=== PATIENT | male | born 1960 | race Caucasian/White ===

== ENCOUNTER 2021-08-12 14:32 | Inpatient (IN) | payer OTHER ==
[~2021-08-12] VITALS: Ht 172.7 cm; Wt 87.7 kg
[2021-08-12 14:43] VITALS: BP 186/86
[2021-08-12 16:31] LABS: URINE BILIRUBIN NEGATIVE (Negative); URINE BLOOD NEGATIVE (Negative); URINE CLARITY CLEAR; URINE COLOR YELLOW; URINE GLUCOSE-RANDOM* 3+ (Negative); URINE KETONES TRACE (Negative); URINE LEUKOCYTES-REFLEX NEGATIVE (Negative); URINE NITRITE-REFLEX NEGATIVE (Negative); URINE PROTEIN (DIPSTICK) TRACE (Negative); URINE UROBILINOGEN 0.2 E.U./dl (0.2-1.0)
[2021-08-12 18:30] LABS: ABSOLUTE NEUTROPHILS 4.1 thou/uL (1.4-8.2); BASOPHILS 1.3 % (0.0-2.0); EOSINOPHILS 4.2 % (0.0-3.0); HEMATOCRIT 43.6 % (42.0-52.0); HEMOGLOBIN 14.4 gm/dL (14.0-18.0); MCH 26.5 pg (26.0-34.0); MCHC 32.9 g/dL (28.0-37.0); MCV 80.4 fL (80.0-100.0); MONOCYTES 10.3 % (1.0-8.0); PLATELET COUNT 273 thou/uL (150-400); POLYS 58.2 % (36.0-66.0); RBC 5.42 mil/uL (4.50-6.00); RDW 14.3 % (10.5-14.5)
[2021-08-12 18:46] LABS: CALCIUM 8.7 mg/dL (8.5-10.1); CREATININE 0.8 mg/dL (0.7-1.3); POTASSIUM 3.9 mmol/L (3.5-5.1)
[2021-08-12 18:54] LABS: ALBUMIN 3.3 g/dL (3.4-5.0); TOTAL BILIRUBIN 0.2 mg/dL (0.2-1.0); TOTAL PROTEIN 7.6 g/dL (6.4-8.2)
[2021-08-12 21:33] VITALS: BP 181/94
[2021-08-12 21:52] VITALS: BP 204/96
[2021-08-12 22:46] VITALS: BP 177/95
--- NOTE | 2021-08-12 23:59 | NUR ---
PT ADMITTED TO THE UNIT AT APPROXIMATELY 2150. PT IS A/O X4 AND IS UP WITH SBA DUE TO C/O LEFT LEG SPORADIC NUMBNESS AND PAIN TO LEFT HIP. ROOM AIR. BP ELEVATED. SB ON THE MONITOR IN THE HIGH 40'S. BS ELEVATED IN THE 300'S. ORDERS GIVEN BY ENVIRONMENTAL SCIENCE PROFESSOR TO TREAT BP. URINAL PROVIDED AT THE BEDSIDE. LBM WAS YESTERDAY. STATES HE HAS PAIN IN LEFT HIP BUT AT THIS TIME WISHES TO NOT TAKE ANY PAIN RELIEVER. PT HAS BEEN EDUCATED ON USE OF CALL LIGHT AND BED CONTROLS. ADMISSION IS COMPLETE. FALL PRECAUTIONS IN PLACE, CALL LIGHT IS WITHIN REACH. WILL CONTINUE TO MONITOR.
[2021-08-13 04:28] VITALS: BP 175/93
[2021-08-13 06:01] LABS: CHOLESTEROL 179 mg/dL (<200); HDL CHOLESTEROL 30 mg/dL (>40); LDL CHOLESTEROL 119 mg/dL (<100); TRIGLYCERIDE 151 mg/dL (<150); VLDL 30 mg/dL (<40)
[2021-08-13 06:02] LABS: CALCIUM 8.6 mg/dL (8.5-10.1); CREATININE 0.8 mg/dL (0.7-1.3); POTASSIUM 3.8 mmol/L (3.5-5.1)
[2021-08-13 06:06] LABS: SERUM ASSESSMENT Clear
[2021-08-13 07:21] VITALS: BP 183/89
--- NOTE | 2021-08-13 11:25 | NUR ---
ASSESSMENT: CM REVIEWED CHART AND SPOKE WITH PATIENT. PT IS ALERT AND ORIENTED X4. PT WAS ADMITTED WITH LUMBAR RADICULOPATHY, HERNIATED DISK. PT GETTING MRI AND NEUROSURGERY IS CONSULTED AND FOLLOWING WITH POSSIBLE PLANS FOR SURGERY TOMORROW PENDING MRI RESULTS. PT REPORTS THAT HE WAS FULLY INDEPENDENT WITH ADLS AND AMBULATION. PT REPORTS HE HAS NO DME AT HOME OR THE NEED FOR IT AND WAS WORKING. PT WANTING TO KNOW IF HE HAS SURGERY HOW LONG HE WILL BE OUT OF WORK HE NEEDS TO LET HIS JOB KNOW. CM NOTIFIED PT THAT PHYSICIAN WOULD HAVE MORE INFORMATION. PT REPORTS NO HX OF HH OR SNF. PT REPORTS HE DOES NOT CURRENTLY HAVE A PCP. CM NOTIFIED PT TO CONTACT THE NUMBER ON THE BACK OF HIS INSURANCE CARD TO GET PROVIDERS THAT ARE IN NETWORK. CM ALSO PROVIDED PT WITH [facility] DOCTORS LIST/CONTACTS. WILL AWAIT FURTHER RECOMMENDATIONS AND PLANS WELL PT/OT EVALS. CM WILL CONTINUE TO FOLLOW.
[2021-08-13 11:33] VITALS: BP 176/89
[2021-08-13 16:23] VITALS: BP 158/83
[2021-08-13 19:12] VITALS: BP 168/86
--- NOTE | 2021-08-13 19:28 | NUR ---
Assumed pt care this am vs stable, bp elevated managed with medications. Pt stated he does not see not has gone to a doctor. POC follwed, pain is managed with medications partial relief is noted. MRI is rescheduled to tomorrow .
[2021-08-13 22:16] VITALS: BP 190/11
[2021-08-14] VITALS (7 sets, daily range): BP systolic 150–181; BP diastolic 88–109
--- NOTE | 2021-08-14 00:54 | NUR ---
ASSESSED AT START OF SHIFT. PT AND DTR CONCERNED ABOUT MRI. INFORMED THAT MRI IS SCHEDULED TOMORROW PER REPORT. CALLED MRI TO CONFIRM NO RESPONSE. HIGH BP. HYDRALAZINE GIVEN. URINAL AT BEDSIDE. FALL PREC IN PLACE AND CALL LIGHT AT REACH WILL CONT TO MONITOR.
[2021-08-14 03:06] LABS: GLYCOHEMOGLOBIN (HGB A1C) 9.4 % (4.8-5.6)
[2021-08-14 04:33] LABS: HEMOGLOBIN 14.6 gm/dL (14.0-18.0); MCHC 33.2 g/dL (28.0-37.0); MCV 81.5 fL (80.0-100.0); RBC 5.4 mil/uL (4.50-6.00); RDW 14.5 % (10.5-14.5); WBC 10.3 thou/uL (4.0-11.0)
[2021-08-14 04:37] LABS: CALCIUM 8.7 mg/dL (8.5-10.1); CREATININE 0.8 mg/dL (0.7-1.3); POTASSIUM 3.7 mmol/L (3.5-5.1)
--- NOTE | 2021-08-14 11:51 | NUR ---
on-going assessment: CM REVIEWED CHART AND SPOKE WITH ATTENDING. PT CONTINUES WITH LLE WEAKNESS. NEUROSURGERY IS ON THE CASE AND FOLLOWING. NO NEED FOR INTERVENTION AT THIS TIME BUT THEY ARE RECOMMENDING THAT NEUROLOGY BE CONSULTED TO FOR PATIENT. NEURO CONSULT PLACED. PT/OT EVALS ALSO ORDERED. NO PLANS FOR WEEKEND DISCHARGE ANTICIPATED. CM WILL CONTINUE TO FOLLOW TO ASSIST NEEDED. [facility] AVAILABLE TO BE CONSULTED IF NEEDED.
--- NOTE | 2021-08-14 11:52 | NUR ---
Assumed care of pt at 0700. Pt a&ox4. Denies pain. LLE weakness. Up x1 assist with gait-belt and walker. MRI thoracis today. Neurology consulted. PT/OT. Talked to pt's daughter and updated on pt's status. Call light within reach. Fall precautions in place. Will continue to monitor.
[2021-08-14 23:06] LABS: GLYCOHEMOGLOBIN (HGB A1C) 9.2 % (4.8-5.6)
[2021-08-15 06:37] LABS: HEMATOCRIT 44.6 % (42.0-52.0); HEMOGLOBIN 14.5 gm/dL (14.0-18.0); MCH 26.3 pg (26.0-34.0); MCHC 32.6 g/dL (28.0-37.0); MCV 80.7 fL (80.0-100.0); RBC 5.53 mil/uL (4.50-6.00); RDW 14.2 % (10.5-14.5); WBC 10.2 thou/uL (4.0-11.0)
[2021-08-15 06:58] LABS: CALCIUM 8.7 mg/dL (8.5-10.1); CREATININE 0.8 mg/dL (0.7-1.3); POTASSIUM 3.7 mmol/L (3.5-5.1)
[2021-08-15 07:53] VITALS: BP 181/100
[2021-08-15 07:56] VITALS: BP 172/91
--- NOTE | 2021-08-15 08:06 | NUR ---
ASSUMED CARE AT 1900, PT LAYING IN BED COMFORTABLY, CALL LIGHT WITHIN REACH, COLD WATER ON THE BEDSIDE TABLE, DAUGHTER PRESENT, PT COMPLIANT OF TX, NO ADVERSE RECTION NOTED, REPORTS NO PAIN OR DISCOMFORT, AMBULATED TO THE TOILET MULTIPLE TIME X2 ASSIST WITH WALKER AND GAIT BELT, SYSTOLIC BLOOD PRESSURE REMAINS FLATUATING HIGH. [employer] SALES REPRESENTATIVE NOTIFIED, NEW ORDER RECEIVED MEDICATION ADMINISTERED, PT ON CONTINOUS MONITORING.
[2021-08-15 15:26] VITALS: BP 125/74
--- NOTE | 2021-08-15 15:26 | HC ---
[facility] [place] [address] CONSULTATION Name: RENATAKATLYN Room #: 438-P [facility] IN ..#: [id number] Admission: 08/12/21 Attend Phys: Jailyn Rich MD Discharge: Date of : 62 Report #: [id number] THIS REPORT FOR: cc: FAM - No family physician/PCP FAM - No family physician/PCP Ramona Polanco DO ~ DATE OF SERVICE: 08/14/2021 NEUROLOGY CONSULT HISTORY OF PRESENT ILLNESS: The patient is a 61-year-old male who presents with a 30-day history of left lower extremity weakness. The patient states that he first noticed weakness in his foot. He also has tingling in his toes. He feels that the weakness and tingling has spread up his leg. The patient has difficulty getting into a car. He has difficulty walking up and down stairs. The patient reported receiving his first dose of the COVID-19 vaccine one to two hours prior to symptom onset. He received his second COVID vaccine four days prior to admission. The patient denies pain in the leg with the exception of pain in the area of the left ankle. The patient denies weakness in his arms. He has no symptoms in the right lower extremity. The patient was admitted on 08/12. He was evaluated through the emergency room and admitted. The patient told me that he had not seen a primary care provider for this. When he was admitted to the hospital, he also states he was diagnosed with diabetes, had no idea that he had diabetes. Apparently, the patient fell six months ago injuring his right shoulder and underwent surgical repair of the shoulder a month or two after the injury. The patient has been seen by the surgeon and MRI of the lumbar spine was ordered. This showed multilevel lumbar spondylosis with severe disk desiccation at L3-L4 and L4-L5. At L3-L4, there is severe disk desiccation with broad-based posterior disk bulge which typically descending L4 nerve root more so on the left than the right with some posterior displacement of the descending left L4 nerve root. Mild bilateral facet arthrosis is seen. There is foraminal disk bulging resulting in moderate medial foraminal stenosis. No significant/severe central canal stenosis or neural foraminal stenosis is identified at any level. MRI of the thoracic spine showed degenerative changes, most significant at T10-T11 where posterior disk bulge and bilateral facet hypertrophy resulting in severe central canal stenosis and no significant neural foraminal narrowing. PAST MEDICAL HISTORY: Negative. PAST SURGICAL HISTORY: Right shoulder surgery. MEDICATIONS: None. [address] [address] CONSULTATION Name: KATLYN YANEZ Room #: 438-P [facility] IN ..#: [id number] Admission: 08/12/21 Attend Phys: Jailyn Rich MD Discharge: Date of : 62 Report #: [id number] ALLERGIES: None. VITAL SIGNS: Temperature 36.4, pulse rate 64, respiratory rate 20, blood pressure 170/99, bedside pulse oximetry 98% on room air. LABORATORY DATA: Hematology: White blood cell count 10.3, hemoglobin 14.6, hematocrit 44, MCV 81.5, platelet count 290,000. Urinalysis: Trace protein, trace ketones, 3+ glucose. Chemistry: Sodium 139, potassium 3.7, chloride 103, carbon dioxide 26, BUN 13, creatinine 0.8, glucose 99. Hemoglobin A1c 9.4, calcium 8.7, total bilirubin 0.2, AST 20, ALT 31, alkaline phosphatase 62, total protein 7.6, albumin 3.3, triglycerides 151. Cholesterol 179, LDL cholesterol 119, HDL cholesterol 30. Serology: COVID negative. IMAGING STUDIES: As noted in the history. NEUROLOGIC: Cranial nerves II-XII are grossly intact. Motor exam demonstrates normal strength in the upper extremities and right lower extremity and the left lower extremity. The patient has no ankle dorsi or plantar flexion. In a sitting position, he can almost extend the leg parallel to the floor, but appears to have weakness with knee flexion and extension. For hip flexion and extension, the patient is able to flex the left hip equally to move the right hip. The patient's reflexes are absent throughout. Plantar responses are flexor. Coordination shows no evidence of dysmetria. Sensory exam demonstrates decreased light touch in the foot, but involving the medial foot, but not the lateral foot, this did not go above the ankle. There was no dysesthesias in the lower leg or in the thigh. IMPRESSION AND PLAN: This patient has on MRI severe thoracic spinal stenosis and at L3-L4, a broad-based disk bulge, which is the descending L4 nerve root. Mild bilateral facet arthrosis is noted at this level. There is nothing on the MRI of the lumbar spine that would account for any neurologic symptoms. I explained to the patient that although the imaging of the thoracic and lumbar spine is abnormal, would not account for the symptoms that he has in the left lower extremity. I am concerned with the new diagnosis of diabetes that this patient could have a diabetic plexopathy. I have asked for an urgent CT scan of the pelvis to evaluate the lumbosacral plexus. Given the unilateral nature of his symptoms I have also asked for an MRI of the brain without contrast. <ELECTRONICALLY SIGNED> By: Ramona Polanco DO 08/15/21 1526 [id number] [id number] Ramona Polanco DO /jass
--- NOTE | 2021-08-15 18:37 | NUR ---
Pt is A & O x4. Pt Vs stable. Pt received medictions as ordered. Pt is NSR on the tele. Pt is room air. Pt is SBA with ADLs and cares. Pt is able to make needs known
[2021-08-15 19:36] VITALS: BP 138/80
--- NOTE | 2021-08-16 04:00 | NUR ---
PT STILL WITH NUMBNESS TO LLE, REQUIRES CLOSE SBA WHILE AMBULATING AND NEEDS WALKER AND GAITBELT.DENIES PAIN. NOT SURE WHETHER HE IS READY FOR D/C TODAY-CONCERNED ABOUT INABILITY TO AMBULATE SAFELY-ADVISED TO DISCUSS CONCERNS WITH DOCTOR.VOIDING OK.
[2021-08-16 06:04] LABS: HEMATOCRIT 43.7 % (42.0-52.0); HEMOGLOBIN 14.1 gm/dL (14.0-18.0); MCH 26.2 pg (26.0-34.0); MCHC 32.2 g/dL (28.0-37.0); MCV 81.2 fL (80.0-100.0); RBC 5.38 mil/uL (4.50-6.00); RDW 14.2 % (10.5-14.5); WBC 10.2 thou/uL (4.0-11.0)
[2021-08-16 07:12] LABS: CALCIUM 8.7 mg/dL (8.5-10.1); CREATININE 0.9 mg/dL (0.7-1.3); POTASSIUM 3.7 mmol/L (3.5-5.1)
[2021-08-16 08:44] VITALS: BP 153/85
[2021-08-16 11:44] VITALS: BP 143/85
--- NOTE | 2021-08-16 16:10 | NUR ---
ASSUMED CARE OF PT AT 0700 THIS MORNING. PT IS A/OX4 WITH WEAKNESS ON LEFT SIDE. PT CAN AMBULATE WITH WALKER WITH SB ASST. PT ASSESSMENTS NOTED IN CHART AND OTHERWISE UNREMARKABLE. FALL PRECAUTIONS ARE IN PLACE. ORIANA LIGHT AND OTHER NEEDS ARE IN REACH. MEDS AND TX GIVEN NEEDED AND SCHEDULED. WILL MONITOR AND NOTE ANY CHANGES.
[2021-08-16 16:33] VITALS: BP 128/75
[2021-08-16 19:40] VITALS: BP 129/79
--- NOTE | 2021-08-17 02:52 | NUR ---
ASSUMED CARE OF PT AT 1900. BEDSIDE REPORT RECIEED. FAMILY MEMBER C PT. JOANIE ASSESSMENT COMPLETE. L SIDED WEAKNESS NOTED D/T PRIOR CVA. ACCU CHECK COMPLETE. MEDS GIVEN PER JAN. PT DENIES ANY PAIN AT THIS TIME. R AC PIV PATENT, SECURE, SALINE LOCKED. UP C JACOB MONTANO. TELE LEADS IN PLACE. HOURLY ROUNDING CONTINUING. ALL NEEDS MET, CALL LIGHT IN REACH.
[2021-08-17 04:43] VITALS: BP 153/84
[2021-08-17 07:30] VITALS: BP 151/88
[2021-08-17 11:48] VITALS: BP 131/74
--- NOTE | 2021-08-17 12:07 | NUR ---
RE-ASSUMED CARE OF PT AT 0700 THIS MORNING. PT IS A/OX4 AND NO CHANGES FROM YESTERDAY. CONTINIUED CARE AND ASSESSMENTS NOTED IN CHART AND OTHERWISE UNREMARKABLE. PT HAS BEEN EVALUATED BY OT AND PHYS THPY. POSSIBLE XFER TO [facility]. FALL PRECAUTIONS ARE IN PLACE. CALL LIGHT AND OTHER NEEDS ARE IN REACH. MEDS AND TX GIVEN NEEDED AND SCHEDULED. WILL MONITOR AND NOTE ANY CHANGES.
--- NOTE | 2021-08-17 14:31 | NUR ---
Discussed during los with the hospitalist , dieter stroke. [facility] started auth for acute rehab. consult for short team disability question, tried visiting with channing. Resting, and no answer. Referral sent to [facility].
[2021-08-17 15:30] VITALS: BP 125/75
--- NOTE | 2021-08-17 15:43 | 2DMMODE ---
[facility] [place] [address] 2 D/M-MODE ECHOCARDIOGRAM Name: KATLYN YANEZ Room #: 438-P ADM IN M.R.#: [id number] Admission: 08/12/21 Attend Phys: Jailyn Rich MD Discharge: Date of : 62 Report #: [id number] THIS REPORT FOR: cc: GIBSON - Noemi family physician/PCP GIBSON - No family physician/PCP Herbert Young MD [facility] ~ APPROVED REPORT Study performed: 08/17/2021 14:26:26 EXAM: Comprehensive 2D, Doppler, and color-flow Echocardiogram Patient Location: Bedside Room #: 438 Status: routine BSA: 2.02 HR: 51 bpm BP: 151/88 mmHg Rhythm: Bradycardia Other Information Study Quality: Good Indications CVA/TIA Hypertension/HDD Echo Enhancing Agent Indication: Rule out Shunt Agent(s) / Amount(s) Used: Agitated Saline 7 cc 2D Dimensions RVDd: 28.64 mm IVSd: 17.14 (7-11mm) LVOT Diam: 21.98 (18-24mm) LVDd: 42.93 mm PWd: 16.68 (7-11mm) Ascending Ao: 35.50 (22-36mm) LVDs: 29.67 (25-40mm) Left Atrium: 42.49 (27-40mm) Aortic Root: 34.44 mm IVC: 22.00 mm Volumes Left Atrial Volume (Systole) Single Plane 4CH: 51.02 mL Single Plane 2CH: 55.06 mL LA ESV Index: 31.00 mL/m2 [facility] [address] [place] [address] 2 D/M-MODE ECHOCARDIOGRAM Name: KATLYN YANEZ Room #: 438-P ADM IN M.R.#: [id number] Admission: 08/12/21 Attend Phys: Saleem Pedro Discharge: Date of : 62 Report #: [id number] Aortic Valve AoV Peak Nayan.: 1.32 m/s AO Peak Gr.: 6.93 mmHg LVOT Max P.68 mmHg LVOT Max V: 1.08 m/s SAMARIA Vmax: 3.12 cm2 Mitral Valve E/A Ratio: 1.2 MV Decel. Time: 232.59 ms MV E Max Nayan.: 0.76 m/s MV A Nayan.: 0.66 m/s MV PHT: 67.45 ms IVRT: 143.02 ms Pulmonary Valve PV Peak Nayan.: 0.97 m/s PV Peak Gr.: 3.80 mmHg Pulmonary Vein P Vein S: 0.48 m/s P Vein A: 0.19 m/s P Vein D: 0.35 m/s P Vein A Dur.: 110.7 msec P Vein S/D Ratio: 1.37 Tricuspid Valve TR Peak Nayan.: 2.63 m/s TR Peak Gr.: 27.70 mmHg Left Ventricle The left ventricle is normal size. There is normal LV segmental wall motion. Moderate concentric left ventricular hypertrophy. The left ventricular systolic function is normal. The left ventricular ejection fraction is within the normal range. LVEF is 55-60%. Grade II - pseudonormal filling dynamics. Right Ventricle The right ventricle is normal size. The right ventricular systolic function is normal. Atria The left atrium size is normal. Interatrial septum is intact without evidence of ASD or PFO. The right atrium size is normal. Aortic Valve The aortic valve is normal in structure. No aortic regurgitation is present. There is no aortic valvular stenosis. Mitral Valve [facility] [address] [place] [address] 2 D/M-MODE ECHOCARDIOGRAM Name: KATLYN YANEZ Room #: 438-P ADM IN .R.#: [id number] Admission: 08/12/21 Attend Phys: Saleem Pedro Discharge: Date of : 62 Report #: [id number] The mitral valve is normal in structure. Trace mitral regurgitation. No evidence of mitral valve stenosis. Tricuspid Valve The tricuspid valve is normal in structure. There is no tricuspid valve regurgitation noted. Pulmonic Valve The pulmonary valve is normal in structure. There is no pulmonic valvular regurgitation. Great Vessels The aortic root is normal in size. IVC is dilated and collapses >50% with inspiration. Pericardium There is no pericardial effusion. <Conclusion> Normal left ventricle size with moderate concentric hypertrophy Ejection fraction 55% Grade 2 diastolic dysfunction Normal right ventricle size/function Normal atrial size Normal aortic/mitral valve structure and function No tricuspid valve insufficiency No pericardial effusion Normal aortic root size <ELECTRONICALLY SIGNED> By: Herbert Young MD, FACC 08/17/21 1543 1543 1543 Herbert Young MD, FACC /INF
--- NOTE | 2021-08-17 17:03 | NUR ---
[facility] CONSULT RECEIVED AND Pt WAS SEEN BY DR. MARY ANNE SHEA. Pt IS A CANDIDATE FOR ACUTE REHAB. THIS HAIR ASSISTANT CALLED [facility] TO START AUTHORIZATION PROCESS. PENDING AUTH# [id number]. SPOKE W/ VICKI Cerrato CLINICAL INFORMATION WAS FAXED TO [phone], ATTN PRE-CERTIFICATION. CALLED BENEFITS DEPARTMENT AND SPOKE W/ ANGELITA Platt WHO CONFIRMED THAT DR. MARY ANNE SHEA WAS IN-NETWORK W/ Pt'S INSURANCE PLAN. WILL AWAIT RESPONSE FROM [facility] REGARDING AUTHORIZATION.
[2021-08-17 20:31] VITALS: BP 141/75
[2021-08-18 07:55] VITALS: BP 153/85
--- NOTE | 2021-08-18 07:56 | NUR ---
RECEIVED CARE OF THIS PATIENT AT 1900. PATIENT ALERT AND ORIENTED X4. UP WITH SBA. C/O NUMBNESS IN L LEG. TOLD PATIENT BECAUSE OF THE NUMBNESS OF HIS LEG HE IS A HIGH FALL RISK AND TOLD HIM TO ASK FOR HELP WHEN GETTING UP. PATIENT AGREED. DENIED PAIN. SLEPT OFF AND ON DURING NIGHT.
--- NOTE | 2021-08-18 15:12 | NUR ---
CONTINUED CARE OF PT AT 0700 THIS MORNING. NO CHANGES SINCE REPORT WAS GIVEN LAST NIGHT. PT ASSESSMENTS NOTED IN CHART AND OTHERWISE UNREMARKABLE. FALL PRECAUTIONS ARE IN PLACE. PT IS WAITING FOR REHAB PLACEMENT AND WORKING WITH PHYS THPY AND OT. CALL LIGHT AND OTHER NEEDS ARE IN REACH. MEDS AND TX GIVEN NEEDED AND SCHEDULED. WILL MONITOR AND NOTE ANY CHANGES.
[2021-08-18 16:30] VITALS: BP 125/88
[2021-08-18 17:02] VITALS: BP 102/65
[2021-08-18 19:17] VITALS: BP 129/76
--- NOTE | 2021-08-19 04:06 | NUR ---
RECEIVED CARE OF THIS PATIENT AT 1900. PATIENT ALERT AND ORIENTED X4. DENIES PAIN. READY TO GO HOME TODAY. ACCUCHECK WAS 182, GETS METMOFMIN. HAS NO IV, DOCTORS AWARE. UP AD MARIA ISABEL. SLEPT MOST OF NIGHT.
[2021-08-19 04:11] VITALS: BP 148/83
[2021-08-19 07:52] VITALS: BP 157/90
--- NOTE | 2021-08-19 10:39 | NUR ---
Assumed care of pt at 0700. Pt a&ox4. Denies pain. SBA with walker and gait-belt. Waiting on ins auth to go to rehab. Call light within reach. Will continue to monitor.
[2021-08-19 12:16] VITALS: BP 106/73
--- NOTE | 2021-08-19 13:02 | NUR ---
[facility] can accept the pt for acute rehab stay once ins auth rec'd. They have a bed available today. Pt medically ready for dc to acute. Care team updated. Awaiting ins auth. Pt will also need a covid now when dc'd to acute rehab.
[2021-08-19 16:42] VITALS: BP 119/77
--- NOTE | 2021-08-19 16:57 | NUR ---
I have reviewed the documentation by EMILY BAR from 08/19/21 to 08/19/21 and I concur with it. MICHAEL TREJO
[2021-08-19 19:33] VITALS: BP 130/84
--- NOTE | 2021-08-20 01:57 | NUR ---
ASSESSED AT START OF SHIFT, PT RESTING IN BED. DENIES PAIN. EVENING MEDS GIVEN AND PT DOLORES IT WELL. UP WITH SBA TO THE BATHROOM. BSG CHECKED AND METFORMIN GIVEN. POSSIBLE DC TO [facility] TOMORROW. FALL PREC IN PLACE AND CALL LIGHT AT REACH WILL CONT TO MONITOR.
[2021-08-20 05:05] VITALS: BP 160/104
[2021-08-20 08:17] VITALS: BP 154/98
--- NOTE | 2021-08-20 10:17 | NUR ---
Assumed care of pt at 0700. Pt a&ox4. Denies pain. SBA to the toilet with walker and gait-belt. Awaiting transfer to rehab unit. Call light within reach. Fall precautions in place. Will continue to monitor.
[2021-08-20 12:30] VITALS: BP 120/78
--- NOTE | 2021-08-20 14:27 | NUR ---
Followup dc planning visit with pt at bedside and dtr Celia via phone. Pt and dtr advised that [facility] submited for ins auth on Friday 08/17 and we are still awaiting an approval. [facility] has a bed for him today if auth rec'd. The [facility] liason has been checking with ins. Dtr/pt will also try to call ins as they are frustrated that the pt has not been able to be admitted to the rehab program. Progress with therapy and updates from the care team provided. Potential dc planning needs discussed including obtaining a pcp ([facility] or Dr Landrum)for f/u care with new dx of dm and htn, short term disability paperwork from his employer, group home disablity and health ins per his employer, SS disability pending his progress and stroke recovery, [place] and [place] pending his finances and extent of his disability, help at home and dpoa documents. Pt's dtr to bring in his paperwork for std per his HR dept for completion, she will make a new pt appt for pcp, she will talk with her siblings about potential transportation and care needs at home, DPOA document for hc to be given to the pt/dtr, dtr to look into a financial dpoa as well if needed. Family is noting that the pt's responses are at times delayed and his memory seems to be a little impaired compared to his normal functioning. ST arriaza requested. Pt is and has four living children. His 18 yr old dtr and 15 year old son live with him. Celia and an another son live close by. 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 It is unclear at this time if he will be able to return to work/driving. Acute rehab, outpt therapy programs,HH and dme discussed. Support provided. Pt is motivated and his children are very supportive. Will follow.
[2021-08-20 15:55] VITALS: BP 135/81
[2021-08-20 19:58] VITALS: BP 136/78
--- NOTE | 2021-08-21 01:08 | NUR ---
ASSUMED PT CARE AT 1900.PT DENIED PAIN SO FAR.UP WITH GB/CANE AND SBA.L SIDED WEAKNESS NOTED.PT ON TELE SR-SB. PT'S FAMILY AT BEDSIDE AT SHIFT CHANGE.PT ABLE TO MAKE HIS NEEDS KNOWN.CALL LIGHT WITHIN REACH.
[2021-08-21 07:11] VITALS: BP 142/92
--- NOTE | 2021-08-21 12:22 | NUR ---
S/W LARISA LIMA NURSE REVIEWER TO ATTEMPT TO EXPEDIATE THE AUTH PROCESS FOR ACUTE REHAB. SHE WILL CONTACT HER DRAGSAW OPERATOR. FAXED LATEST PT/OT NOTES TO JANIE FAX# [phone] USING AUTH # [id number].
--- NOTE | 2021-08-21 13:08 | NUR ---
SW reviewed chart and spoke with nursing and attending physician. Pt is medically stable for discharge to post-acute care. [facility] has submitted for insurance auth. Awaiting input from insurance at this time. Pt to discharge to today if insurance auth has been provided. CHARLENE is following to assist as needed with discharge planning.
--- NOTE | 2021-08-21 14:24 | NUR ---
PT PROGRESSING TOWARD GOALS. WORKING W/THERAPY. AMBULATING W/ QUAD CANE. NO C/O PAIN. EATING AND DRINKING WELL. AWAITING INS APPROVAL FOR REHAB UNIT.
[2021-08-21] MEDS ORDERED: METOPROLOL TART25 MG PO (15:56)
[2021-08-21] MEDS ORDERED: LIPITOR40 MG PO (15:56)
[2021-08-21] MEDS ORDERED: BAYER CHEWABLE81 MG PO (15:57)
[2021-08-21] MEDS ORDERED: NORVASC10 MG PO (15:57)
[2021-08-21] MEDS ORDERED: METFORMIN HCL500 MG PO (15:57)
[2021-08-21] MEDS ORDERED: TRADJENTA5 MG PO (15:57)
[2021-08-21] MEDS ORDERED: LISINOPRIL20 MG PO (15:57)
--- NOTE | 2021-08-21 15:58 | NUR ---
PATIENT WAS APPROVED FOR ACUTE INPATIENT REHABILITATION BY [facility] INSURANCE ON 08/21/21. REFERENCE #[id number]. REVIEW IS DUE TO CANDICE ON 08/28/21. CANDICE CAN BE REACHED FOR REVIEW BY PHONE AT [phone] OR FAX BY [phone].
--- NOTE | 2021-08-21 18:20 | NUR ---
I have reviewed the documentation by EMILY BAR from 08/21/21 to 08/21/21 and I concur with it. MICHAEL TREJO
[2021-08-21 19:47] VITALS: BP 154/86
[2021-08-21 22:30] VITALS: BP 146/84
--- NOTE | 2021-08-25 15:24 | HC ---
[facility] [place] [address] CONSULTATION Name: KATLYN YANEZ Room #: 503-P [facility] IN ..#: [id number] Admission: 08/12/21 Attend Phys: Jailyn Rich MD Discharge: 08/21/21 Date of : 62 Report #: [id number] THIS REPORT FOR: cc: GIBSON - No family physician/PCP FAM - No family physician/PCP Timo Samuel MD ~ DATE OF SERVICE: 08/17/2021 HISTORY OF PRESENT ILLNESS: The patient is a 61-year-old male admitted with left leg numbness x1 month. He has had more and more problems with inability to ambulate. There also was note of urinary control problems with loss of control in the Emergency Room. He was noted to have severe disk desiccation at L3-L4 with progressive weakness of that left leg. Neurosurgery saw him and did not feel that any surgical intervention was warranted. Neurology was involved and they initially were concerned about possible lumbar plexopathy with his newly diagnosed diabetes mellitus. Further workup included an MRI of the brain, which revealed a subacute right caudate stroke. The patient has had a significant functional decline from his premorbid level. He has been diagnosed with new onset diabetes mellitus and new onset hypertension. PAST MEDICAL HISTORY: He was on no known home medications. PAST SURGICAL HISTORY: Includes right shoulder surgery secondary to fall at work 6 months ago. HABITS: Tobacco use, 5-6 cigarettes per day. Alcohol on special occasions. FAMILY HISTORY: Includes diabetes, heart disease, hypertension. SOCIAL HISTORY: He lives with his son and daughter in a multilevel home, 20 steps in. Son and daughter go to school and work. He could stay on one level if need be. He works as a home health caregiver. REVIEW OF SYSTEMS: Did not offer any current complaints of chest pain, shortness of breath or abdominal discomfort. PHYSICAL EXAMINATION: GENERAL: A 61-year-old male, pleasant, in no obvious distress. VITAL SIGNS: Last recorded temperature 98.1, pulse 65, respirations 20, blood pressure 151/88. NEUROLOGIC: The patient is alert. He follows basic 1-step commands. Facies appeared to be symmetric. Appears to have functional range of motion of both upper extremities. I would grade his strength at a 4-/5. Coordination appeared to be reasonably intact [id number]. In his right lower extremity, he appeared to have functional range of motion, strength was at least a grade 4-/5. Tone was intact. Left lower extremity, he is able to flex his left hip grade [facility] [address] [place] [address] CONSULTATION Name: KATLYN YANEZ Room #: 503-P [facility] IN ..#: [id number] Admission: 08/12/21 Attend Phys: Jailyn Rich MD Discharge: 08/21/21 Date of : 62 Report #: [id number] 3+ to 4-. Abduction is 3+ to 4-. Knee extension is 3+ to 4-. No active knee flexion and he has no active ankle dorsiflexion, plantarflexion, or eversion. He has decreased reflexes throughout his lower extremities. He appears to have some decreased light touch to the foot. Proprioception may be mildly decreased left large toe. Functionally, he has been min assist coming to stand. Gait is 25 feet min assist with a front-wheeled walker. Toilet transfers are mod assist. Lower extremity dressing is moderate assistance. ASSESSMENT: A 61-year-old male with the following problem list: 1. Subacute right caudate nucleus cerebrovascular accident. 2. Significant left-sided weakness, especially left lower extremity. 3. Severe disk desiccation at L3-4 with progressive weakness of the left leg. 4. Urinary loss of control during initial admission, which is being monitored. 5. New onset diabetes mellitus, hemoglobin A1c 9.2. 6. New onset hypertension. 7. Hyperlipidemia. 8. Lumbar radiculopathy. No surgery indicated per Neurosurgery. 9. Multiple stairs at home. Family present, but works. PLAN: The patient has had a significant functional decline from his prior status where he was out working as a home health caregiver. He is needing mod assist with lower body dressing and mod assist with toilet transfers and needs assistance with short distance ambulation, is not moving that left distal lower extremity at all. Would recommend a short acute in-hospital inpatient rehabilitation stay to try to maximize his functional independence, so he can return back to the home setting. Insurance precertification issues to be checked. ADDENDUM: Patient also had some questions regarding his short-term disability policy and we will ask case management to assist further in this regard. <ELECTRONICALLY SIGNED> By: Timo Samuel MD 08/25/21 1524 [id number] Timo Samuel MD /nt
== END 2021-08-21 22:47 | DRG 551 ==
LOC: ER 14:32 → 4S 19:26 → EROBS 19:26 → 4S 21:41
PROVIDERS: Hospitalist; Nurse Practitioner Family; ADMIT Hospitalist; ATTEND Hospitalist
DX: M51.16 Intervertebral disc disorders with radiculopathy, lumbar region (principal); I63.9 Cerebral infarction, unspecified; G81.94 Hemiplegia, unspecified affecting left nondominant side; M51.36 Other intervertebral disc degeneration, lumbar region; M48.05 Spinal stenosis, thoracolumbar region; I10 Essential (primary) hypertension; Z20.822 Contact with and (suspected) exposure to COVID-19; E11.65 Type 2 diabetes mellitus with hyperglycemia; E78.5 Hyperlipidemia, unspecified; F17.210 Nicotine dependence, cigarettes, uncomplicated; M47.26 Other spondylosis with radiculopathy, lumbar region; Z82.3 Family history of stroke; Z83.3 Family history of diabetes mellitus; Z82.49 Family history of ischemic heart disease and other diseases of the circulatory system; Z79.899 Other long term (current) drug therapy
CPT/HCPCS: 10100

== ENCOUNTER 2021-08-20 09:30 | Inpatient (IN) | payer OTHER ==
[~2021-08-20] VITALS: Ht 172.7 cm; Wt 87.5 kg
--- NOTE | ~2021-08-20 | PLAN ---
[facility] [place] [address] REHAB UNIT PLAN OF CARE Name: KATLYN YANEZ Room #: 503-P ADM IN M.R.#: [id number] Admission: 08/21/21 Attend Phys: Timo Samuel MD Discharge: Date of : 62 Report #: [id number] THIS REPORT FOR: cc: FAM - No family physician/PCP FAM - No family physician/PCP Timo Samuel MD ~ DATE OF SERVICE: 08/24/2021 HISTORY OF PRESENT ILLNESS: The patient was seen back today in followup. He was in no distress. Last recorded temperature 97.8, pulse 58, respirations 20, blood pressure 130/81. He is alert. Seems to be moving the left lower extremity better than when last seen. I would grade his dorsiflexion at least a grade 3+/5 as well as extensor hallucis longus. He is not able to plantar flex at all for me. He has got very weak knee flexion at grade 2-. No calf swelling. Functionally, he is transferring with standby assistance and gait is now 50 feet mod assist without a device. In occupational therapy, lower body dressing is supervision with upper body dressing independent. In speech, he was noted to have a regular diet with thin liquids. ASSESSMENT: 1. Subacute right caudate nucleus cerebrovascular accident. 2. Left hemiparesis with left foot neuropathy. 3. Severe thoracic spinal stenosis. 4. Lumbar radiculopathy with disk desiccation at L3-L4. 5. Newly diagnosed diabetes mellitus type 2. 6. Newly diagnosed hypertension. 7. Hyperlipidemia. PLAN: The overall plan of care is based on the pre-admission screen and information garnered from therapy assessments. 1. Estimated length of stay is probably around 10 days. 2. Medical prognosis reasonably good. 3. Anticipated interventions includes interdisciplinary acute inpatient rehabilitation program. 4. Anticipated functional outcomes would be for the patient to become modified independent with transfers, mobility and ADLs and improvement as far as cognition, so that he can return back to the home setting. 5. Discharge destination would be back home where he lives with his son and daughter. 6. Expected therapy by discipline includes PT, OT and speech 1 hour per day each 5 days a week throughout the duration of the acute inpatient rehabilitation stay. ADDENDUM: The patient's prognosis for significant practical improvement within a reasonable period of time appears good. Given the patient's complex medical condition and risk of further medical complication, rehabilitation services [address] [address] REHAB UNIT PLAN OF CARE Name: RENATAKATLYN Room #: 503-P [facility] IN .R.#: [id number] Admission: 08/21/21 Attend Phys: Timo Samuel MD Discharge: Date of : 62 Report #: [id number] could not be safely provided at a lower level of care such as a residential facility. By: [id number] Timo Samuel MD /nt
[2021-08-21] MEDS ORDERED: LIPITOR40 MG PO (15:56)
[2021-08-21] MEDS ORDERED: METOPROLOL TART25 MG PO (15:56)
[2021-08-21] MEDS ORDERED: METFORMIN HCL500 MG PO (15:57)
[2021-08-21] MEDS ORDERED: TRADJENTA5 MG PO (15:57)
[2021-08-21] MEDS ORDERED: BAYER CHEWABLE81 MG PO (15:57)
[2021-08-21] MEDS ORDERED: NORVASC10 MG PO (15:57)
[2021-08-21] MEDS ORDERED: LISINOPRIL20 MG PO (15:57)
[2021-08-21 22:30] VITALS: BP 146/84
--- NOTE | 2021-08-22 03:43 | NUR ---
ASSUMED CARE OF PT AT 2230HRS. PT IS AOX4 AND LETS NEEDS BE KNOWN. FALL PRECAUTION IN PLACE. PT WAS ORIENTED TO THE UNIT AND HIS ROOM. PT WAS ABLE TO ANSWER ALL ADMISSION RELATED QUESTIONS AND SIGN CONSENTS. PT DENIED PAIN, NAUSEA OR SOA. LLE WEAKNESS NOTED. PT AMBULATES WITH A QUAD CANE AND SBA. PT WAS ABLE OT GET COMFORTABLE AND SLEEP PART OF THE SHIFT. VSS AND NO S/S OF ACUTE DISTRESS. WILL CONTINUE TO MONITOR FOR CHANGES.
[2021-08-22 05:35] LABS: HEMATOCRIT 40.3 % (42.0-52.0); HEMOGLOBIN 13.1 gm/dL (14.0-18.0); MCH 26.4 pg (26.0-34.0); MCHC 32.5 g/dL (28.0-37.0); MCV 81.2 fL (80.0-100.0); RBC 4.96 mil/uL (4.50-6.00); RDW 13.7 % (10.5-14.5); WBC 8.2 thou/uL (4.0-11.0)
[2021-08-22 05:40] LABS: CALCIUM 8.4 mg/dL (8.5-10.1); CREATININE 0.8 mg/dL (0.7-1.3); POTASSIUM 3.7 mmol/L (3.5-5.1)
[2021-08-22 06:15] LABS: FOLIC ACID 15.4 ng/mL (8.6-58.9)
[2021-08-22 07:15] VITALS: BP 167/92
--- NOTE | 2021-08-22 09:56 | NUR ---
PT LYING IN BED THIS AM. PT DENIES ANY PAIN. PT ABLE TO TAKE MEDS WHOLE WITH WATER. PT HAS EQUAL SIGN HANGER UPPER EXTREMITIES. PT HAS WEAKNESS TO LEFT SIDE WHEN AMBULATING. PT LUNGS CLEAR.
[2021-08-22 19:37] VITALS: BP 165/95
--- NOTE | 2021-08-23 04:44 | NUR ---
ASSUMED CARE AT 1900 OF 08/22. PATIENT IS A&OX4. DENIES PAIN OR SHORTNESS OF BREATH. LLE WEAKNESS PRESENT, STANDBY ASSIST WITH TRANSFERS USING QUAD CANE AND GB. BUE MANAGER PRODUCT MARKETING REMAIN EQUAL. TOLERATED MEDS WHOLE WITH WATER. FALL PRECAUTIONS IN PLACE, CALL LIGHT WITHIN REACH. WILL CONTINUE TO MONITOR.
[2021-08-23 07:20] VITALS: BP 173/99
[2021-08-23 19:34] VITALS: BP 130/81
--- NOTE | 2021-08-24 04:23 | NUR ---
ASSUMED CARE AT 1900 OF 08/23. PATIENT IS A&OX4. DENIES PAIN OR SHORTNESS OF BREATH. STAND BY ASSIST WITH TRANSFERS AND MABULATION, USING GB AND QUAD CANE. TOLERATED MEDS WHOLE WITH THIN LIQUIDS. FALL PRECAUTIONS IN PLACE, CALL LIGHT WITHIN REACH. WILL CONTINUE TO MONITOR.
[2021-08-24 07:11] VITALS: BP 162/91
--- NOTE | 2021-08-24 08:29 | NUR ---
Chart review. DX CVA. Elia visited with channing at bedside. answer with yes or no with verbal conversation. Education on dcp and team weekly meetings. Prior to hospital lives in house, steps to enter and inside home. Independent. No dme. Manage own medication. No pcp, daughter going to set up visit to get a pcp. Drives and works outside the home. Daughter and son live in area and they work. Daughter going to get his short term disability paperwork from his employer to have fill out. Will cont following as needed for dc needs.
--- NOTE | 2021-08-24 13:23 | NUR ---
Nutrition: Pt transferred to acute rehab with dx subacute CVA, lumbar radiculopathy. New dx DM, HTN, HLD. Triglycerides 151, LDL 119. Pt able to speak/understand bruneian although primary language occitan. Education on heart healthy diabetic diet completed on 08/[address] Pt voices no additional questions for RD at this time. Eats well/good appetite. Recent 7# weight loss from usual possibly due to undiagnosed DM. Place as low nutrition risk.
[2021-08-24 19:28] VITALS: BP 158/97
[2021-08-24 22:00] VITALS: BP 153/82
--- NOTE | 2021-08-25 00:05 | NUR ---
PT ASSESSMENT COMPLETED AND VSS. MEDS GIVEN ORDERED AND WELL TOLERATED. FALL PRECAUTIONS IN PLACE. VOIDING PER URINAL. LEFT FOOT WEAKNESS CONTINUES. PT ASKING LOTS OF GOOD QUESTIONS ABOUT BG LEVELS AND BP. PROVIDED EDUCATION. PT ASKING IF HE CAN GET A BP CUFF FOR HOME COVERED. HE IS PLANNING TO ASK THE DR IN THE MORNING. PT DENIES NEEDS. SLEEPING. WILL CONTINUE TO MONITOR FREQUENTLY.
[2021-08-25 07:07] VITALS: BP 159/94
[2021-08-25 08:50] VITALS: BP 161/97
[2021-08-25 10:30] VITALS: BP 122/83
--- NOTE | 2021-08-25 13:55 | NUR ---
Team meeting, recommendation: starting to be able to move left leg, welding production supervisor assist. Need assist with medication and finance. No driving or work till cleared by MD, needs to be set up with pcp. outpt therapy pt, ot, [facility]. lives home with younger teen children. dc 08/27
[2021-08-25 19:13] VITALS: BP 135/81
--- NOTE | 2021-08-25 19:29 | NUR ---
PT WILLINGLY WORKED WITH THERPAIES. PT STATES HE IS EAGER TO GET HOME. PT TOLERATING DIET BUT HAS POOR APPETITE. PT DID EAT WELL FOR DINNER. 100%. PT GAIT STEADY WITH QUAD CANE AND SBA. PT BP ELEVATED IN AM PO BP MEDS GIVEN WITH NOTED GOOD RELIEF.
--- NOTE | 2021-08-26 01:26 | NUR ---
ASSUMED CARE AT 1900 OF 08/25. PATIENT IS A&OX4. DENIES PAIN OR SHORTNESS OF BREATH. STAND BY ASSIST WITH TRANSFERS USING QUAD CANE. LLE WEAKNESS IS PRESENT. VOIDS VIA URINAL, URINAL PLACED AT BEDSIDE. FALL PRECAUTIONS IN PLACE, CALL LIGHT WITHIN REACH. WILL CONTINUE TO MONITOR.
[2021-08-26 07:15] VITALS: BP 163/95
--- NOTE | 2021-08-26 08:44 | NUR ---
PT SITTING IN CHAIR THIS AM. PT EATING BREAKFAST WITHOUT ANY ISSUES. PT STATED HE HASN'T HAD A BM FOR 2 DAYS. PT RECIEVED COLACE THIS AM, PT HAS BOWEL SOUNDS. PT DENIES ANY N/V. PT STATED HIS GOAL WOULD BE TO GET HIS BP DOWN. HE UNDERSTANDS HE IS ON X3 BP MEDS AT THIS TIME. PT HS LEFT SIDED WEAKNESS TO LE DUE TO STROKE. PT APPRECIATED FOR ALL HIS CARE.
--- NOTE | 2021-08-26 08:51 | NUR ---
ADM SENNACOT 7.5MG PO FOR CONSTIPATION.
--- NOTE | 2021-08-26 11:38 | NUR ---
cm visited with channing while he working with physical therapy. education on [employer] 40$ glucometer to check his bs, insurance doesnt cover bp machine. outpt referral [facility].
[2021-08-26 12:25] VITALS: BP 163/95
[2021-08-26 19:14] VITALS: BP 139/72
--- NOTE | 2021-08-27 01:58 | NUR ---
ASSUMED CARE AT 1900 OF 08/26. PATIENT IS A&OX4, DENIES PAIN OR DISCOMFORT. TOLERATED ORAL MEDS WITH THIN LIQUIDS. STAND BY ASSIST WITH TRANSFERS USING QUAD CANE TO AMBULATE TO BATHROOM. FALL PRECAUTIONS IN PLACE, CALL LIGHT WITHIN REACH. WILL CONTINUE TO MONITOR.
[2021-08-27 08:00] VITALS: BP 143/96
[2021-08-27] MEDS ORDERED: ZESTRIL40 MG PO (08:53)
[2021-08-27] MEDS ORDERED: METFORMIN HCL500 MG PO (08:53)
[2021-08-27] MEDS ORDERED: LIPITOR40 MG PO (08:53)
[2021-08-27] MEDS ORDERED: VITAMIN D325 MC5 PO (08:53)
[2021-08-27] MEDS ORDERED: HYDROCHLOROTHIA25 M1 PO (08:53)
[2021-08-27] MEDS ORDERED: NORVASC10 MG PO (08:53)
[2021-08-27] MEDS ORDERED: TRADJENTA5 MG PO (08:53)
[2021-08-27 10:22] VITALS: BP 143/96
== END 2021-08-27 14:35 | disposition home or self-care (01) | DRG 56 ==
PROVIDERS: Nurse Practitioner Family; ADMIT Physical Medicine & Rehabilitation; ATTEND Physical Medicine & Rehabilitation
DX: G81.94 Hemiplegia, unspecified affecting left nondominant side (principal); I63.9 Cerebral infarction, unspecified; R29.810 Facial weakness; M48.04 Spinal stenosis, thoracic region; I10 Essential (primary) hypertension; E78.5 Hyperlipidemia, unspecified; E11.9 Type 2 diabetes mellitus without complications; M51.16 Intervertebral disc disorders with radiculopathy, lumbar region; F17.210 Nicotine dependence, cigarettes, uncomplicated; M47.26 Other spondylosis with radiculopathy, lumbar region; E55.9 Vitamin D deficiency, unspecified; Z71.6 Tobacco abuse counseling; Z79.82 Long term (current) use of aspirin; Z82.49 Family history of ischemic heart disease and other diseases of the circulatory system; Z79.899 Other long term (current) drug therapy
CPT/HCPCS: 10112

== ENCOUNTER 2021-11-09 14:01 | Emergency (ER) | payer OTHER ==
[~2021-11-09] VITALS: Ht 172.7 cm; Wt 88.5 kg
[~2021-11-09 14:01] MED LIST: BAYER CHEWABLE81 MG PO; HYDROCHLOROTHIA25 M1 PO; LIPITOR40 MG PO; LISINOPRIL20 MG PO; METFORMIN HCL500 MG PO; METOPROLOL TART25 MG PO; NORVASC10 MG PO; TRADJENTA5 MG PO; VITAMIN D325 MC5 PO; ZESTRIL40 MG PO
[2021-11-09] MEDS ORDERED: PREDNISONE 20 M20 MG PO (15:23)
[2021-11-09 15:33] VITALS: BP 120/65
== END 2021-11-09 15:49 | disposition home or self-care (01) ==
LOC: ER 14:01
DX: G51.0 Bell's palsy (principal); I10 Essential (primary) hypertension